=== PATIENT | female | born 1950 | race Caucasian/White ===

== ENCOUNTER 2020-01-31 07:45 | Day surgery (SDC) | payer MEDICARE, BC ==
[2020-01-30 10:23] LABS: BLOOD UREA NITROGEN,BUN 16 mg/dL (7.0-18.0); CARBON DIOXIDE,CO2 24.5 mmol/L (21.0-32.0); CHLORIDE,CL 106 mmol/L (98-107); GLUCOSE RANDOM 97 mg/dL (74-106); SODIUM,NA 141 mmol/L (136-145)
[2020-01-31] MEDS ORDERED: fentaNYL 250 MCG/5 ML SDV IVPUSH ONE (08:07)
--- NOTE | 2020-01-31 08:21 | PCM.PREANE ---
Preanesthetic Assessment - Anesthesia/Transfusion/Family Hx Anesthesia History: Prior Anesthesia Without Reaction Family History of Anesthesia Reaction: No Transfusion History: No Prior Transfusion(s) Intubation History: Unknown - Review of Systems General: No Symptoms Pulmonary: No Symptoms Cardiovascular: No Symptoms Gastrointestinal: No Symptoms Neurological: No Symptoms Other: Reports: None - Physical Assessment Height: 5 ft 7 in Weight: 78.018 kg ASA Class: 3 Mental Status: Alert & Oriented x3 Airway Class: Mallampati = 2 Dentition: Reports: Normal Dentition Thyro-Mental Finger Breadths: 3 Mouth Opening Finger Breadths: 3 ROM/Head Extension: Full Lungs: Clear to Auscultation, Normal Respiratory Effort Cardiovascular: Regular Rate, Regular Rhythm - Lab Values: Laboratory Last Values WBC 6.06 K/uL (4.0-11.0) 01/30/20 09:15 RBC 4.16 M/uL (4.30-5.90) L 01/30/20 09:15 Hgb 12.4 g/dL (12.0-16.0) 01/30/20 09:15 Hct 39.2 % (36.0-46.0) 01/30/20 09:15 MCV 94.2 fL (80.0-98.0) 01/30/20 09:15 MCH 29.8 pg (27.0-32.0) 01/30/20 09:15 MCHC 31.6 g/dL (31.0-37.0) 01/30/20 09:15 RDW Std Deviation 51.8 fl (28.0-62.0) 01/30/20 09:15 RDW Coeff of Feng 15 % (11.0-15.0) 01/30/20 09:15 Plt Count 244 K/uL (150-400) 01/30/20 09:15 MPV 10.40 fL (7.40-12.00) 01/30/20 09:15 Nucleated RBC % 0.0 /100WBC 01/30/20 09:15 Nucleated RBCs # 0 K/uL 01/30/20 09:15 Sodium 141 mmol/L (136-145) 01/30/20 09:15 Potassium 4.0 mmol/L (3.5-5.1) 01/30/20 09:15 Chloride 106 mmol/L (98-107) 01/30/20 09:15 Carbon Dioxide 24.5 mmol/L (21.0-32.0) 01/30/20 09:15 BUN 16 mg/dL (7.0-18.0) 01/30/20 09:15 Creatinine 0.7 mg/dL (0.6-1.0) 01/30/20 09:15 Est Cr Clr Drug Dosing 71.68 mL/min 01/30/20 09:15 Estimated GFR (MDRD) > 60.0 ml/min 01/30/20 09:15 Glucose 97 mg/dL (74-106) 01/30/20 09:15 Calcium 9.5 mg/dL (8.5-10.1) 01/30/20 09:15 Blood Type B POSITIVE 01/30/20 09:20 Antibody Screen NEGATIVE 01/30/20 09:20 - Allergies Allergies/Adverse Reactions: Allergies Allergy/AdvReac Type Severity Reaction Status Date / Time contrast dye Allergy Arrhythmias Uncoded 01/26/20 09:51 - Blood Blood Available: No - Anesthesia Plan Pre-Op Medication Ordered: None - Acknowledgements Anesthesia Type Planned: General Anesthesia Pt an Appropriate Candidate for the Planned Anesthesia: Yes Alternatives and Risks of Anesthesia Discussed w Pt/Guardian: Yes Pt/Guardian Understands and Agrees with Anesthesia Plan: Yes PreAnesthesia Questionnaire HEENT History: Reports: Other (See Below) Other HEENT History: wears glasses Cardiovascular History: Reports: Other (See Below) Other Cardiovascular History: recently started on Metoprolol, denies hypertension, stress test done last month was normal Gastrointestinal History: Reports: Chronic Constipation, GERD [employer] DIRECTOR History: Reports: Musculoskeletal History: Reports: Fracture Other Musculoskeletal History: hx of fx left shoulder, currently has pain in left scapula Neurological History: Reports: MS, Vertigo Other Neuro History: MS is currently in remission, occasional vertigo due to MS Psychiatric History: Reports: Depression Endocrine/Metabolic History: Reports: Hypothyroidism Dermatologic History: Reports: Psoriasis - Past Surgical History Head Surgeries/Procedures: Reports: None HEENT Surgical History: Reports: Adenoidectomy, Tonsillectomy GI Surgical History: Reports: Colonoscopy () Female Surgical History: Reports: Breast Biopsy, Cystectomy (laparoscopic), Tubal Ligation Musculoskeletal Surgical History: Reports: ORIF Other Musculoskeletal Surgeries/Procedures:: ORIF fx left shoulder- pins removed - SUBSTANCE USE Smoking Status *Q: Former Smoker (quit more than 10 years ago) Recreational Drug Use History: No - HOME MEDS Home Medications: Home Meds Calcium Carbonate/Vitamin D3 [Calcium 600 + Vit D 200] 1 tab PO DAILY 01/26/20 [History] Cetirizine [ZyrTEC] 10 mg PO DAILY 01/26/20 [History] Cholecalciferol (Vitamin D3) [Vitamin D3] 4,000 unit PO DAILY 01/26/20 [History] Fluticasone Propionate [Flonase Allergy Relief] 1 spray NASBOTH BEDTIME 01/26/20 [History] L.acidoph,Paracasei, B.lactis [Probiotic] 1 tab PO DAILY 01/26/20 [History] Magnesium Amino Acid Chelate [Magnesium] 100 mg PO ASDIRECTED 01/26/20 [History] Metoprolol Tartrate 12.5 mg PO BID 01/26/20 [History] Multivitamin 1 tab PO DAILY 01/26/20 [History] [place]-3/DHA/Epa/Fish Oil [[place]-3 Fish Oil 1,000 MG Sfgl] 1,000 mg PO DAILY 01/26/20 [History] Oxyquinoline Sulfate [Hydroxyquinoline Sulfate] 1 dose VAG ASDIRECTED 01/26/20 [History] Psyllium Husk [Metamucil] 1 cap PO DAILY 01/26/20 [History] Sertraline [Zoloft] 25 mg PO DAILY 01/26/20 [History] Thyroid,Pork [Odd Thyroid] 15 mg PO QAM 01/26/20 [History] Thyroid,Pork [Odd Thyroid] 60 mg PO QAM 01/26/20 [History] Triamcinolone Acetonide [Kenalog 0.1% Crm] 1 applic TOP DAILY PRN 01/26/20 [History] Ubidecarenone [Co Q-10] 100 mg PO DAILY 01/26/20 [History] Vitamin B Complex 1 cap PO DAILY 01/26/20 [History] valACYclovir [Valtrex] 2,000 mg PO BID PRN 01/26/20 [History] - CURRENT (IN HOUSE) MEDS Current Meds: Current Medications Lactated Ringer's (Ringers, Lactated) 1,000 mls @ 125 mls/hr IV ASDIRECTED [facility]
[2020-01-31] MEDS ORDERED: Propofol 200 MG/20 ML SDV ONE (08:30)
[2020-01-31] MEDS ORDERED: Lidocaine 2% 5 ML SDV ONE (08:31)
[2020-01-31] MEDS ORDERED: Midazolam 1 MG/ML 2 ML SDV ONE (08:35)
[2020-01-31] MEDS ORDERED: Bupivacaine 0.25% 10 ML SDV ONE (08:41)
[2020-01-31] MEDS ORDERED: Fluorescein 5 ML Vial ONE (08:41)
[2020-01-31] MEDS: Lactated Ringers 1,000 ML IV SCH ×2 (08:48→12:57)
[2020-01-31] MEDS ORDERED: ceFAZolin 1 GM Vial ONE ×2 (09:12→09:13)
[2020-01-31] MEDS ORDERED: HYDROmorphone 2 MG/ML Syringe ONE (09:29)
[2020-01-31] MEDS ORDERED: Furosemide 40 MG/4 ML VIAL ONE (09:48)
[2020-01-31] MEDS ORDERED: Sugammadex Sodium 200 MG/2 ML VIAL ONE (09:57)
[2020-01-31] MEDS ORDERED: Dexamethasone 4 MG/ML 5 ML MDV ONE (10:02)
[2020-01-31] MEDS ORDERED: Ondansetron 4 MG/2 ML SDV ONE (10:02)
[2020-01-31] MEDS ORDERED: Morphine 4 MG/ML Syringe IVPUSH PRN (11:09)
[2020-01-31] MEDS ORDERED: Promethazine 25 MG/ML SDV IM PRN (11:09)
[2020-01-31] MEDS ORDERED: Ondansetron 4 MG/2 ML SDV IVPUSH PRN (11:09)
[2020-01-31] MEDS ORDERED: Acetaminophen/oxyCODONE 325-5 MG Tab PO PRN (11:09)
--- NOTE | 2020-01-31 11:12 | PCM.OPNOTE ---
- General Post-Op/Procedure Note Date of Surgery/Procedure: 01/31/20 Operative Procedure(s): Total Vaginal Hysterectomy, Anterior and posterior repair, culdoplasty, cystoscopy Pre Op Diagnosis: Incomplete uterine prolapse Post-Op Diagnosis: Incomplete uterine prolapse Anesthesia Technique: General ET Tube Primary Surgeon: Emily Mullins Secondary Surgeon: Alissa Friedman Anesthesia Provider: Angela Trevizo Shank Paperer: Nilay Hernández Fluid Replacement, Intraop: 1,400 Output, Urine Amount: 450 EBL in mLs: 200 Complications: none Condition: Good
--- NOTE | 2020-01-31 12:19 | PCM.POSTAN ---
POST ANESTHESIA ASSESSMENT - MENTAL STATUS Mental Status: Alert, Oriented - VITAL SIGNS Vital Signs: Last Vital Signs Temp 36.6 C 01/31/20 11:06 Pulse 54 L 01/31/20 11:58 Resp 8 L 01/31/20 11:58 BP 134/66 01/31/20 11:58 Pulse Ox 98 01/31/20 11:58 - RESPIRATORY Respiratory Status: Respiratory Rate WNL, Airway Patent, O2 Saturation Stable - CARDIOVASCULAR CV Status: Pulse Rate WNL, Blood Pressure Stable - GASTROINTESTINAL GI Status: No Symptoms - PAIN Pain Score: 3 - POST OP HYDRATION Hydration Status: Adequate & Stable - OBSERVATIONS Free Text/Narrative:: No anesthesia problems
--- NOTE | 2020-01-31 13:48 | OR ---
SURGEON: Emily Mullins M.D. DATE OF PROCEDURE: 01/31/2020 PREOPERATIVE DIAGNOSIS: Incomplete uterovaginal prolapse. POSTOPERATIVE DIAGNOSIS: Incomplete uterovaginal prolapse. PROCEDURES: Total vaginal hysterectomy, anterior and posterior colporrhaphy, culdoplasty, cystoscopy. PRIMARY SURGEON: Emily Mullins MD ASSISTANTS: 1. Alissa Friedman MD. 2. Nilay Hernández MS4. ANESTHESIA: General endotracheal. FLUIDS: 1400 mL of crystalloid. ESTIMATED BLOOD LOSS: 200 mL. FINDINGS: Third-degree uterine prolapse. Fourth-degree cystocele. Third-degree rectocele. On cystoscopy, there was no evidence of trauma to the bladder mucosa, there was copious flow from bilateral ureteral orifices. COMPLICATIONS: None known. DISPOSITION: Stable to Recovery. BRIEF HISTORY: This is a 69-year-old female. She has symptomatic uterovaginal prolapse. She presented several months ago prior to the [facility] for repair, and she did not desire pessary; however, we had to cancel her surgery and therefore she has been utilizing a pessary with improvement of her symptoms over the past 3 months, but desires definitive treatment with a total vaginal hysterectomy, possible vault suspension, possible culdoplasty, anterior posterior colporrhaphy, possible perineorrhaphy, and cystoscopy and surgery as indicated. She did have a preoperative ultrasound due to left lower quadrant pain, which confirmed bilateral ovaries are normal. Therefore, she does desire to retain her ovaries. The risks of the surgery were discussed including bleeding; infection; injury to bowel, bladder, blood vessels, ureters, or other organs; risk of thromboembolic event; risk of anesthesia; risk of recurrence of approximately 30%; risk of new-onset stress incontinence; risk of dyspareunia. Understanding all these risks, she does desire to proceed. DESCRIPTION OF PROCEDURE: With the patient in dorsal lithotomy position, under adequate general endotracheal anesthesia, the perineum and vagina were prepped with Zephiran due to an allergy to IV contrast which was translated into an allergy to Betadine, although this has not been confirmed. Sepulveda catheter was placed. SCDs were in place. She received 2 g of Ancef IV. An appropriate time-out was held. Bimanual examination revealed a very small anteverted uterus protruding to the vaginal introitus with a cystocele in front of the uterus. A weighted speculum was placed posteriorly. A right angle retractor was placed anteriorly. The cervix was grasped with a July tenaculum and circumscribed using electrocautery. The vaginal mucosa was pushed away from the cervix. The anterior cul-de-sac was entered sharply without any difficulties. A right angle retractor was placed in the anterior cul-de-sac. The posterior cul-de-sac was entered sharply and a Juju-Auvard speculum was placed posteriorly. The uterosacral ligaments were clamped, cut, and ligated using a Lexus ligature of 2-0 Polysorb. Pedicle of the broad ligament was taken on the right and the left using a Lexus clamp, cutting, and a Lexus ligature of 2-0 Polysorb. There was a small remaining pedicle of the utero-ovarian ligament that was doubly clamped on each side and cut. The uterus was delivered. The pedicles were then ligated using a free tie followed by a 3-point suture of 2-0 Polysorb. These pedicles were inspected for hemostasis. They were hemostatic and were released. The other pedicles were inspected for hemostasis after the bowel had packed and were hemostatic, the retained uterosacral ligament ligatures were then ligated to the vaginal apices bilaterally. There was actually good support from the uterosacral ligaments and therefore a culdoplasty was performed taking the suture, which had been attached to the uterosacral ligament on the right and the left, and performing a pursestring suture in the posterior cul-de-sac and these were tied in the midline with excellent support. The packing was then removed and cystoscopy was then performed with findings of no trauma to the bladder mucosa, copious flow from bilateral ureteral orifices. Therefore, the Sepulveda catheter was replaced. Following this, the anterior vaginal mucosa was grasped with an Allis clamp approximately 2 cm from the urethral meatus. Good support of the urethra was noted with a large cystocele cephalad to this. Hydrodissection was performed. The vaginal mucosa was incised in the midline, undermined with Metzenbaum scissors. The muscularis layer was from the overlying vaginal mucosa and reapproximated in the midline using multiple interrupted mattress sutures of 2-0 Polysorb. The vaginal mucosa was then slightly trimmed and the apex was ligated with a suture of 0 Polysorb, which was utilized to close the anterior incision to the level of the vaginal cuff in a running locked fashion. At the time when this reached the vaginal cuff, note was made of a pool of blood. Careful inspection was again performed to see where this was coming from. It appeared to be coming from the area of the left uterosacral ligament, which was isolated and ligated using two [id number] sutures of 2-0 Polysorb. Careful inspection was then performed. The bowel was again packed. The pedicles were again inspected and were hemostatic. The packing was removed. Observation for several minutes was performed to ensure that there was no further pooling of blood and there was not. Therefore, I completed the closure of the vaginal cuff with the suture that had been used to close the anterior incision and closed it in a running locked fashion. Evaluation of the posterior defect revealed an upper rectocele, which started approximately 3 cm above the introitus. The introitus itself appeared to be adequate and also there was scarring from prior obstetrical lacerations that I was concerned may involve the rectum. Therefore, I started above the level of these lacerations where the rectoceles began. I did not proceed with perineorrhaphy due to these reasons. Hydrodissection was then performed. The posterior wall was incised with a scalpel, undermined with Metzenbaum scissors, and the muscularis layer was then dissected free. A pursestring suture was used at the apex to complete closure of the small enterocele and then multiple interrupted mattress sutures of 2-0 Polysorb were utilized to reapproximate the muscularis layer. The vaginal mucosa was then closed with a running lock suture after a small amount of the vaginal mucosa was trimmed. The vagina was then packed. Final sponge, needle, and instrument counts were reported as correct. There were no known complications. The patient was transferred to Recovery in good condition. NORMA / GUY /[id number]
[2020-01-31] MEDS: Acetaminophen/oxyCODONE 325-5 MG Tab PO PRN ×2 (18:06→23:38)
[2020-01-31] MEDS: Metoprolol Tartrate 25 MG Tab PO SCH (20:22)
[2020-01-31] MEDS ORDERED: Fluticasone Propionate [Flonase Allergy Relief] NASBOTH SCH (21:00)
[2020-02-01 06:20] LABS: BLOOD UREA NITROGEN,BUN 16 mg/dL (7.0-18.0); CARBON DIOXIDE,CO2 26.8 mmol/L (21.0-32.0); CHLORIDE,CL 105 mmol/L (98-107); GLUCOSE RANDOM 113 mg/dL (74-106); POTASSIUM,K 4.1 mmol/L (3.5-5.1); SODIUM,NA 140 mmol/L (136-145)
[2020-02-01] MEDS ORDERED: THYROID PORK 60 MG PO SCH (07:30)
[2020-02-01] MEDS ORDERED: THYROID PORK 15 MG PO SCH (07:30)
--- NOTE | 2020-02-01 08:08 | PCM.PN ---
<Nilay Hernández - Last Filed: 02/01/20 08:03> - General Info Date of Service: 02/01/20 Admission Dx/Problem (Free Text): S/P TVH, anterior and posterior repair, culdocentesis Subjective Update: Pt feeling well today. Pain has been well-controlled overnight. She is feeling some pressure in her pelvis. Has been ambulating well. Tolerating oral intake. Functional Status: Reports: Pain Controlled - Review of Systems General: Reports: No Symptoms HEENT: Reports: No Symptoms Pulmonary: Reports: No Symptoms Cardiovascular: Reports: No Symptoms Gastrointestinal: Reports: No Symptoms Genitourinary: Reports: Other (pelvic pressure) Musculoskeletal: Reports: No Symptoms Skin: Reports: No Symptoms Neurological: Reports: No Symptoms Psychiatric: Reports: No Symptoms - Patient Data Vitals - Most Recent: Last Vital Signs Temp 96.5 F L 02/01/20 07:19 Pulse 68 02/01/20 07:19 Resp 18 02/01/20 07:19 BP 116/62 02/01/20 07:19 Pulse Ox 95 02/01/20 07:19 Weight - Most Recent: 78.018 kg I&O - Last 24 Hours: Intake & Output 01/31/20 02/01/20 02/01/20 22:59 06:59 14:59 Intake Total 500 Output Total 1100 Balance -600 Lab Results Last 24 Hours: Laboratory Results - last 24 hr 01/30/20 01/31/20 02/01/20 Range/Units 09:20 08:20 05:53 WBC 14.62 H (4.0-11.0) K/uL RBC 3.61 L (4.30-5.90) M/uL Hgb 10.7 L (12.0-16.0) g/dL Hct 34.1 L (36.0-46.0) % MCV 94.5 (80.0-98.0) fL MCH 29.6 (27.0-32.0) pg MCHC 31.4 (31.0-37.0) g/dL RDW Std Deviation 51.1 (28.0-62.0) fl RDW Coeff of Feng 15 (11.0-15.0) % Plt Count 224 (150-400) K/uL MPV 10.30 (7.40-12.00) fL Neut % (Auto) 71.4 (48.0-80.0) % Lymph % (Auto) 17.4 (16.0-40.0) % [place] % (Auto) 10.9 (0.0-15.0) % Eos % (Auto) 0.2 (0.0-7.0) % Baso % (Auto) 0.1 (0.0-1.5) % Neut # (Auto) 10.4 H (1.4-5.7) K/uL Lymph # (Auto) 2.6 H (0.6-2.4) K/uL [place] # (Auto) 1.6 H (0.0-0.8) K/uL Eos # (Auto) 0.0 (0.0-0.7) K/uL Baso # (Auto) 0.0 (0.0-0.1) K/uL Nucleated RBC % 0.0 /100WBC Nucleated RBCs # 0 K/uL Sodium (136-145) mmol/L Potassium (3.5-5.1) mmol/L Chloride (98-107) mmol/L Carbon Dioxide (21.0-32.0) mmol/L BUN (7.0-18.0) mg/dL Creatinine (0.6-1.0) mg/dL Est Cr Clr Drug Dosing mL/min Estimated GFR (MDRD) ml/min Glucose (74-106) mg/dL Calcium (8.5-10.1) mg/dL Blood Type Cancelled B POSITIVE Antibody Screen Cancelled NEGATIVE 02/01/20 Range/Units 05:53 WBC (4.0-11.0) K/uL RBC (4.30-5.90) M/uL Hgb (12.0-16.0) g/dL Hct (36.0-46.0) % MCV (80.0-98.0) fL MCH (27.0-32.0) pg MCHC (31.0-37.0) g/dL RDW Std Deviation (28.0-62.0) fl RDW Coeff of Feng (11.0-15.0) % Plt Count (150-400) K/uL MPV (7.40-12.00) fL Neut % (Auto) (48.0-80.0) % Lymph % (Auto) (16.0-40.0) % [place] % (Auto) (0.0-15.0) % Eos % (Auto) (0.0-7.0) % Baso % (Auto) (0.0-1.5) % Neut # (Auto) (1.4-5.7) K/uL Lymph # (Auto) (0.6-2.4) K/uL [place] # (Auto) (0.0-0.8) K/uL Eos # (Auto) (0.0-0.7) K/uL Baso # (Auto) (0.0-0.1) K/uL Nucleated RBC % /100WBC Nucleated RBCs # K/uL Sodium 140 (136-145) mmol/L Potassium 4.1 (3.5-5.1) mmol/L Chloride 105 (98-107) mmol/L Carbon Dioxide 26.8 (21.0-32.0) mmol/L BUN 16 (7.0-18.0) mg/dL Creatinine 0.8 (0.6-1.0) mg/dL Est Cr Clr Drug Dosing 62.72 mL/min Estimated GFR (MDRD) > 60.0 ml/min Glucose 113 H (74-106) mg/dL Calcium 9.1 (8.5-10.1) mg/dL Blood Type Antibody Screen Med Orders - Current: Current Medications Cetirizine HCl (Zyrtec) 10 mg PO DAILY [facility] Lactated Ringer's (Ringers, Lactated) 1,000 mls @ 125 mls/hr IV ASDIRECTED [facility] Last Admin: 01/31/20 12:57 Dose: 125 mls/hr Documented by: Metoprolol Tartrate (Lopressor) 12.5 mg PO BID [facility] Last Admin: 01/31/20 20:22 Dose: 12.5 mg Documented by: Morphine Sulfate (Morphine) 4 mg IVPUSH Q2H PRN PRN Reason: Pain (severe 7-10) Last Admin: 01/31/20 12:58 Dose: 4 mg Documented by: Ondansetron HCl (Zofran) 4 mg IVPUSH Q6H PRN PRN Reason: Nausea/Vomiting Last Admin: 01/31/20 09:45 Dose: 4 mg Documented by: Oxycodone/Acetaminophen (Percocet 325-5 Mg) 1 tab PO Q4H PRN PRN Reason: Pain (moderate 4-6) Last Admin: 01/31/20 23:38 Dose: 1 tab Documented by: Oxycodone/Acetaminophen (Percocet 325-5 Mg) 2 tab PO Q4H PRN PRN Reason: Pain (moderate 4-6) Fluticasone Propionate [Flonase Allergy Relief] 1 each NASBOTH BEDTIME [facility] Last Admin: 01/31/20 20:23 Dose: Not Given Documented by: Thyroid,Pork 15 Mg 1 each PO ACBREAKFAST RICHIE Last Admin: 02/01/20 07:41 Dose: 1 each Documented by: Thyroid,Pork [[place] (Thyroid] 60 Mg) 1 each PO ACBREAKFAST RICHIE Last Admin: 02/01/20 07:42 Dose: 1 each Documented by: Promethazine HCl (Phenergan) 25 mg IM Q6H PRN PRN Reason: Nausea/Vomiting Sertraline HCl (Zoloft) 25 mg PO DAILY RICHIE Discontinued Medications Bupivacaine HCl (Sensorcaine-Mpf 0.25%) Confirm Administered Dose 10 ml .ROUTE .STK-MED ONE Stop: 01/31/20 08:42 Cefazolin Sodium (Ancef) Confirm Administered Dose 1 gm .ROUTE .STK-MED ONE Stop: 01/31/20 09:13 Cefazolin Sodium (Ancef) Confirm Administered Dose 1 gm .ROUTE .STK-MED ONE Stop: 01/31/20 09:14 Dexamethasone (Dexamethasone) Confirm Administered Dose 20 mg .ROUTE .STK-MED ONE Stop: 01/31/20 10:03 Fluorescein Sodium (Ak-Fluor) Confirm Administered Dose 5 ml .ROUTE .STK-MED ONE Stop: 01/31/20 08:42 Furosemide (Lasix) Confirm Administered Dose 40 mg .ROUTE .STK-MED ONE Stop: 01/31/20 09:49 Hydromorphone HCl (Dilaudid) Confirm Administered Dose 2 mg .ROUTE .STK-MED ONE Stop: 01/31/20 09:30 Lidocaine (Xylocaine-Mpf 2%) Confirm Administered Dose 5 ml .ROUTE .STK-MED ONE Stop: 01/31/20 08:32 Midazolam HCl (Versed 1 Mg/Ml) Confirm Administered Dose 2 mg .ROUTE .STK-MED ONE Stop: 01/31/20 08:36 Ondansetron HCl (Zofran) Confirm Administered Dose 4 mg .ROUTE .STK-MED ONE Stop: 01/31/20 10:03 Propofol (Diprivan 20 Ml) Confirm Administered Dose 200 mg .ROUTE .STK-MED ONE Stop: 01/31/20 08:31 Sugammadex Sodium (Bridion) Confirm Administered Dose 200 mg .ROUTE .STK-MED ONE Stop: 01/31/20 09:58 - Exam General: Alert, Oriented, No Acute Distress HEENT: Pupils Equal, EOMI Neck: Supple, No JVD Lungs: Clear to Auscultation, Normal Respiratory Effort. No: Crackles, Rales, Rhonchi, Wheezing Cardiovascular: Regular Rate, Regular Rhythm, No Murmurs. No: Gallops, Rubs GI/Abdominal Exam: Normal Bowel Sounds, Soft, No Organomegaly, No Distention, No Mass, Tender. No: Guarding, Rigid (Female) Exam: Normal External Exam Back Exam: Normal Inspection, Full Range of Motion Extremities: Normal Inspection, Non-Tender, No Pedal Edema Skin: Warm, Dry, Intact Wound/Incisions: Healing Well Neurological: No New Focal Deficit, Normal Speech, Normal Tone Psy/Mental Status: Alert, Normal Affect, Normal Mood Sepsis Event Note - Evaluation Sepsis Screening Result: No Definite Risk - Focused Exam Vital Signs: Vital Signs Temp Pulse Pulse Resp BP BP Pulse Ox 02/01/20 07:19 96.5 F L 68 18 116/62 95 02/01/20 04:31 99.7 F 79 16 101/57 L 94 L 02/01/20 00:00 210.6 F H 73 17 110/54 L 92 L 01/31/20 20:22 76 107/61 Date Exam was Performed: 02/01/20 Time Exam was Performed: 08:03 - Problem List & Annotations (1) History of total vaginal hysterectomy (TVH) SNOMED Code(s): 587697660, 826982969 Code(s): Z90.710 - ACQUIRED ABSENCE OF BOTH CERVIX AND UTERUS Status: Acute Current Visit: Yes - Problem List Review Problem List Initiated/Reviewed/Updated: Yes - Assessment Assessment:: 69yo female s/p total vaginal hysterectomy, anterior and posterior repair, culdocentesis. No complications. Vaginal packing removed today. - Plan Plan:: Routine care Remove Sepulveda D/C today. <HarpreetEmily J - Last Filed: 02/01/20 08:14> - Patient Data Vitals - Most Recent: Last Vital Signs Temp 35.8 C L 02/01/20 07:19 Pulse 68 02/01/20 07:19 Resp 18 02/01/20 07:19 BP 116/62 02/01/20 07:19 Pulse Ox 95 02/01/20 07:19 I&O - Last 24 Hours: Intake & Output 01/31/20 02/01/20 02/01/20 22:59 06:59 14:59 Intake Total 500 Output Total 1100 Balance -600 Lab Results Last 24 Hours: Laboratory Results - last 24 hr 01/30/20 01/31/20 02/01/20 Range/Units 09:20 08:20 05:53 WBC 14.62 H (4.0-11.0) K/uL RBC 3.61 L (4.30-5.90) M/uL Hgb 10.7 L (12.0-16.0) g/dL Hct 34.1 L (36.0-46.0) % MCV 94.5 (80.0-98.0) fL MCH 29.6 (27.0-32.0) pg MCHC 31.4 (31.0-37.0) g/dL RDW Std Deviation 51.1 (28.0-62.0) fl RDW Coeff of Feng 15 (11.0-15.0) % Plt Count 224 (150-400) K/uL MPV 10.30 (7.40-12.00) fL Neut % (Auto) 71.4 (48.0-80.0) % Lymph % (Auto) 17.4 (16.0-40.0) % [place] % (Auto) 10.9 (0.0-15.0) % Eos % (Auto) 0.2 (0.0-7.0) % Baso % (Auto) 0.1 (0.0-1.5) % Neut # (Auto) 10.4 H (1.4-5.7) K/uL Lymph # (Auto) 2.6 H (0.6-2.4) K/uL [place] # (Auto) 1.6 H (0.0-0.8) K/uL Eos # (Auto) 0.0 (0.0-0.7) K/uL Baso # (Auto) 0.0 (0.0-0.1) K/uL Nucleated RBC % 0.0 /100WBC Nucleated RBCs # 0 K/uL Sodium (136-145) mmol/L Potassium (3.5-5.1) mmol/L Chloride (98-107) mmol/L Carbon Dioxide (21.0-32.0) mmol/L BUN (7.0-18.0) mg/dL Creatinine (0.6-1.0) mg/dL Est Cr Clr Drug Dosing mL/min Estimated GFR (MDRD) ml/min Glucose (74-106) mg/dL Calcium (8.5-10.1) mg/dL Blood Type Cancelled B POSITIVE Antibody Screen Cancelled NEGATIVE 02/01/20 Range/Units 05:53 WBC (4.0-11.0) K/uL RBC (4.30-5.90) M/uL Hgb (12.0-16.0) g/dL Hct (36.0-46.0) % MCV (80.0-98.0) fL MCH (27.0-32.0) pg MCHC (31.0-37.0) g/dL RDW Std Deviation (28.0-62.0) fl RDW Coeff of Feng (11.0-15.0) % Plt Count (150-400) K/uL MPV (7.40-12.00) fL Neut % (Auto) (48.0-80.0) % Lymph % (Auto) (16.0-40.0) % [place] % (Auto) (0.0-15.0) % Eos % (Auto) (0.0-7.0) % Baso % (Auto) (0.0-1.5) % Neut # (Auto) (1.4-5.7) K/uL Lymph # (Auto) (0.6-2.4) K/uL [place] # (Auto) (0.0-0.8) K/uL Eos # (Auto) (0.0-0.7) K/uL Baso # (Auto) (0.0-0.1) K/uL Nucleated RBC % /100WBC Nucleated RBCs # K/uL Sodium 140 (136-145) mmol/L Potassium 4.1 (3.5-5.1) mmol/L Chloride 105 (98-107) mmol/L Carbon Dioxide 26.8 (21.0-32.0) mmol/L BUN 16 (7.0-18.0) mg/dL Creatinine 0.8 (0.6-1.0) mg/dL Est Cr Clr Drug Dosing 62.72 mL/min Estimated GFR (MDRD) > 60.0 ml/min Glucose 113 H (74-106) mg/dL Calcium 9.1 (8.5-10.1) mg/dL Blood Type Antibody Screen Med Orders - Current: Current Medications Cetirizine HCl (Zyrtec) 10 mg PO DAILY [facility] Lactated Ringer's (Ringers, Lactated) 1,000 mls @ 125 mls/hr IV ASDIRECTED [facility] Last Admin: 01/31/20 12:57 Dose: 125 mls/hr Documented by: Metoprolol Tartrate (Lopressor) 12.5 mg PO BID [facility] Last Admin: 01/31/20 20:22 Dose: 12.5 mg Documented by: Morphine Sulfate (Morphine) 4 mg IVPUSH Q2H PRN PRN Reason: Pain (severe 7-10) Last Admin: 01/31/20 12:58 Dose: 4 mg Documented by: Ondansetron HCl (Zofran) 4 mg IVPUSH Q6H PRN PRN Reason: Nausea/Vomiting Last Admin: 01/31/20 09:45 Dose: 4 mg Documented by: Oxycodone/Acetaminophen (Percocet 325-5 Mg) 1 tab PO Q4H PRN PRN Reason: Pain (moderate 4-6) Last Admin: 01/31/20 23:38 Dose: 1 tab Documented by: Oxycodone/Acetaminophen (Percocet 325-5 Mg) 2 tab PO Q4H PRN PRN Reason: Pain (moderate 4-6) Fluticasone Propionate [Flonase Allergy Relief] 1 each NASBOTH BEDTIME [facility] Last Admin: 01/31/20 20:23 Dose: Not Given Documented by: Thyroid,Pork 15 Mg 1 each PO ACBREAKFAST [facility] Last Admin: 02/01/20 07:41 Dose: 1 each Documented by: Thyroid,Pork [[place] (Thyroid] 60 Mg) 1 each PO ACBREAKFAST RICHIE Last Admin: 02/01/20 07:42 Dose: 1 each Documented by: Promethazine HCl (Phenergan) 25 mg IM Q6H PRN PRN Reason: Nausea/Vomiting Sertraline HCl (Zoloft) 25 mg PO DAILY RICHIE Discontinued Medications Bupivacaine HCl (Sensorcaine-Mpf 0.25%) Confirm Administered Dose 10 ml .ROUTE .STK-MED ONE Stop: 01/31/20 08:42 Cefazolin Sodium (Ancef) Confirm Administered Dose 1 gm .ROUTE .STK-MED ONE Stop: 01/31/20 09:13 Cefazolin Sodium (Ancef) Confirm Administered Dose 1 gm .ROUTE .STK-MED ONE Stop: 01/31/20 09:14 Dexamethasone (Dexamethasone) Confirm Administered Dose 20 mg .ROUTE .STK-MED ONE Stop: 01/31/20 10:03 Fluorescein Sodium (Ak-Fluor) Confirm Administered Dose 5 ml .ROUTE .STK-MED ONE Stop: 01/31/20 08:42 Furosemide (Lasix) Confirm Administered Dose 40 mg .ROUTE .STK-MED ONE Stop: 01/31/20 09:49 Hydromorphone HCl (Dilaudid) Confirm Administered Dose 2 mg .ROUTE .STK-MED ONE Stop: 01/31/20 09:30 Lidocaine (Xylocaine-Mpf 2%) Confirm Administered Dose 5 ml .ROUTE .STK-MED ONE Stop: 01/31/20 08:32 Midazolam HCl (Versed 1 Mg/Ml) Confirm Administered Dose 2 mg .ROUTE .STK-MED ONE Stop: 01/31/20 08:36 Ondansetron HCl (Zofran) Confirm Administered Dose 4 mg .ROUTE .STK-MED ONE Stop: 01/31/20 10:03 Propofol (Diprivan 20 Ml) Confirm Administered Dose 200 mg .ROUTE .STK-MED ONE Stop: 01/31/20 08:31 Sugammadex Sodium (Bridion) Confirm Administered Dose 200 mg .ROUTE .STK-MED ONE Stop: 01/31/20 09:58 Sepsis Event Note - Focused Exam Vital Signs: Vital Signs Temp Pulse Pulse Resp BP BP Pulse Ox 02/01/20 07:19 35.8 C L 68 18 116/62 95 02/01/20 04:31 37.6 C 79 16 101/57 L 94 L 02/01/20 00:00 99.2 C H 73 17 110/54 L 92 L 01/31/20 20:22 76 107/61 Date Exam was Performed: 02/01/20 Time Exam was Performed: 08:13 - Problem List Review Problem List Initiated/Reviewed/Updated: Yes - My Orders Last 24 Hours: My Active Orders 01/31/20 11:09 Patient Status [ADT] Routine Notify Provider Intake and Out [RC] ASDIRECTED Notify Provider Vital Signs [RC] ASDIRECTED Oxygen Therapy [RC] ASDIRECTED RT Incentive Spirometry [RC] Q2HWA Up With Assistance [RC] PER UNIT ROUTINE Up ad Rochelle [RC] PER UNIT ROUTINE Urinary Catheter Removal [RC] Per Unit Routine Vital Signs [RC] PER UNIT ROUTINE Acetaminophen/oxyCODONE [Percocet 325-5 MG] 1 tab PO Q4H PRN Acetaminophen/oxyCODONE [Percocet 325-5 MG] 2 tab PO Q4H PRN Morphine 4 mg IVPUSH Q2H PRN Ondansetron [Zofran] 4 mg IVPUSH Q6H PRN Promethazine [Phenergan] 25 mg IM Q6H PRN Peripheral IV Discontinue [OM.PC] Routine Sequential Compression Device [OM.PC] Per Unit Routine Resuscitation Status Routine 01/31/20 11:10 Antiembolic Devices [RC] PER UNIT ROUTINE May Take Own Home Medications [OM.PC] Per Unit Routine Remove Vaginal Packing [OM.PC] Per Unit Routine 01/31/20 Dinner Regular Diet [DIET] 01/31/20 21:00 Metoprolol Tartrate [Lopressor] 12.5 mg PO BID Patient's Own Medication [Ptom] 1 each NASBOTH BEDTIME 02/01/20 07:30 Patient's Own Medication [Ptom] 1 each PO ACBREAKFAST Patient's Own Medication [Ptom] 1 each PO ACBREAKFAST 02/01/20 09:00 Cetirizine [ZyrTEC] 10 mg PO DAILY Sertraline [Zoloft] 25 mg PO DAILY - Assessment Assessment:: Patient was seen and examined by me and I agree with above. correction of pro cedure on above note: culdoplasty (not culdocentesis)
[2020-02-01] MEDS: Metoprolol Tartrate 25 MG Tab PO SCH (08:43)
[2020-02-01] MEDS ORDERED: Cetirizine 10 MG Tab PO SCH (09:00)
[2020-02-01] MEDS ORDERED: Sertraline 25 MG Tab PO SCH (09:00)
[2020-02-01] MEDS: Acetaminophen/oxyCODONE 325-5 MG Tab PO PRN (10:50)
== END 2020-02-01 12:50 | disposition home or self-care (01) ==
LOC: MW.SDS 07:45 → MW.MS 11:13 → MW.SDS 02-01 12:50
PROVIDERS: ATTEND Obstetrics & Gynecology
DX: N81.3 Complete uterovaginal prolapse (principal); D25.9 Leiomyoma of uterus, unspecified; N80.0 Endometriosis of uterus; N88.8 Other specified noninflammatory disorders of cervix uteri; G35 Multiple sclerosis; K21.9 Gastro-esophageal reflux disease without esophagitis; E03.9 Hypothyroidism, unspecified; F32.9 Major depressive disorder, single episode, unspecified; Z87.891 Personal history of nicotine dependence; Z79.899 Other long term (current) drug therapy; Z91.041 Radiographic dye allergy status
CPT/HCPCS: 36415; 57260; 58260; 80048; 85025; 85027; 86850; 86900; 86901; 88304; 88309; 88311; A9270; J0690; J1100; J1170; J1940; J2001; J2250; J2270; J2405; J2704; J3490; J7120; 00944